=== PATIENT | female | born 1940 | race Caucasian/White ===

== ENCOUNTER 2016-11-09 06:10 | Inpatient (IN) | payer MEDICARE ==
[2016-11-03 11:13] LABS: ASCORBIC ACID (UR NOT ORDER) NEG (NEG); BILIRUBIN, URINE NEGATIVE (NEG); KETONE, URINE NEGATIVE (NEG); LEUKOCYTE ESTERASE(NOT OR TRACE (NEG); WBC (NOT ORDERED) (RFLEX) 5 (0-5)
[2016-11-03 12:04] LABS: BASOPHILS 0.3 %; BASOPHILS ABSOLUTE 0.02 10/3/uL (0.0-0.16); EOSINOPHILS 2.1 %; EOSINOPHILS ABSOLUTE 0.13 10/3/uL (0.0-0.53); HEMATOCRIT 40.3 % (36.0-48.0); HEMOGLOBIN 13.4 g/dL (12.0-16.0); IMMATURE GRANULOCYTES 0.2 %; IMMATURE GRANULOCYTES ABSOLUTE 0.01 10/3/uL (0.0-0.11); LYMPHOCYTES ABSOLUTE 1.14 10/3/uL (0.67-4.30); MEAN CORPUS HGB CONC 33.3 g/dL (32.0-36.0); MEAN CORPUSCULAR HEMOGLOB 31.1 pg (26.0-34.0); MEAN CORPUSCULAR VOLUME 93.5 fL (80-100); MEAN PLATELET VOLUME 10.4 fL (9.2-13.0); MONOCYTES 10.3 %; MONOCYTES ABSOLUTE 0.65 10/3/uL (0.21-1.20); NEUTROPHILS 69.1 %; NEUTROPHILS ABSOLUTE 4.39 10/3/uL (2.02-8.40); PLATELET COUNT 260 10/3/uL (150-400); RBC DISTRIBUTION WIDTH 13.6 % (12.0-16.0); RED CELL COUNT 4.31 10/6/uL (4.0-5.6); WHITE BLOOD CELLS 6.3 10/3/uL (4.5-10.5)
[2016-11-03 12:05] LABS: MANUAL DIFF NO %
[2016-11-03 12:14] LABS: INTERNATIONAL NORMAL RATI 1.1 UNITS (-); PROTIME (NOT ORD) 13.8 SEC (12.0-14.5)
[2016-11-03 12:18] LABS: ALBUMIN 3.7 G/DL (3.5-5.0); BUN (BLOOD UREA NITROGEN) 12 MG/DL (6-23); CALCIUM, SERUM 9.4 MG/DL (8.5-10.4); CHLORIDE, SERUM 104 MMOL/L (96-112); CO2 (CARBON DIOXIDE) 27 MMOL/L (24-34); CREATININE 0.69 MG/DL (0.55-1.02); GFR AFRICAN AMERICAN 98 ML/MIN (>=60); GFR NON AFRICAN AMERICAN 85 ML/MIN (>=60); GLOBULIN 3.7 G/DL (2.5-4.1); GLUCOSE, SERUM 96 MG/DL (60-99); POTASSIUM, SERUM 4.9 MMOL/L (3.5-5.3); SGOT(AST) 16 U/L (5-40); SGPT(ALT) 16 U/L (5-65); SODIUM, SERUM 140 MMOL/L (135-148); TOTAL BILIRUBIN 0.5 MG/DL (0-1.2); TOTAL PROTEIN 7.4 G/DL (6.0-8.5)
[2016-11-03 12:20] LABS: ALKALINE PHOSPHATASE 85 U/L (45-117)
--- NOTE | ~2016-11-09 | OP ---
Record Of Operation [facility] [address] [place]. [address] NAME: TUAN CORRAL : 39 STATUS : ADM IN PAT#: [id number] AGE: 75 ADM/REG DATE : 11/09/16 MR#: [id number] REPORT SERV DATE: 11/09/16 DICTATED BY: SHALONDA GARCIA DATE: 11/09/16 REPORT STATUS : Draft TRANSCRIBED BY: MODRomán DATE: 11/09/16 DATE OF PROCEDURE: 11/09/2016 PREOPERATIVE DIAGNOSES: 1. 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 2. Chronic rheumatic arthritis. 3. Chronic obstructive pulmonary disease. 4. Morbid obesity. 5. Remote history of smoking. POSTOPERATIVE DIAGNOSES: 1. 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 2. Chronic rheumatic arthritis. 3. Chronic obstructive pulmonary disease. 4. Morbid obesity. 5. Remote history of smoking. PROCEDURES PERFORMED: 1. Right video-assisted thoracic surgery with right lower lobectomy. 2. Mediastinal lymph node dissection. SURGEON: Shalonda Garcia M.D. LICENSING DIRECTOR: Jean Mcconnell. ANESTHESIA: General with Dr. Seth. INDICATIONS: This is a 75-year-old female with a remote history of smoking and quit smoking in 2004. In 2013, she was originally seen for nodule in the left upper lobe of her lung that had increased in size. This was resected as a wedge resection through a thoracoscopic approach and the pathology demonstrated to be a granulomatous inflammation. The patient has a history of rheumatoid arthritis. She had been followed by Dr. Ortiz for several years and a recent chest CT demonstrated a lung nodule in the right lower lobe and it also demonstrated increase in size over the last six months. PET scan demonstrated an increased uptake of the nodule. There was no evidence of regional metastatic spread on PET scan or CT scan. The patient underwent a bronchoscopy with biopsy and this was positive for poorly- differentiated carcinoma of the lung. We were asked to see the patient for evaluation. She subsequently underwent MRI of the brain, demonstrated no evidence of metastatic spread. PFTs demonstrated adequate reserve for resection with an FEV1 of 1.7 and DLCO of 50% of predicted. We talked with the patient and family about possible resection of the right lower lobe and after lengthy discussion of operations, its indication and risks, they wished to proceed. FINDINGS AT OPERATION: 1. Right lower lobe lung lesion was attached to the diaphragm. Grossly did not appear to invade the diaphragm, however, we did resect a small section of the diaphragm with the Record Of Operation [address] [address] NAME: TUAN CORRAL : 39 STATUS : ADM IN [facility]#: [id number] AGE: 75 ADM/REG DATE : 11/09/16 MR#: [id number] REPORT SERV DATE: 11/09/16 DICTATED BY: SHALONDA GARCIA DATE: 11/09/16 REPORT STATUS : Draft TRANSCRIBED BY: MODL DATE: 11/09/16 tumor and this was sent for pathology. Frozen section of this portion of the diaphragm was negative for malignancy. 2. After resection of this portion the diaphragm, the diaphragm was repaired using horizontal mattress sutures of 2-0 Prolene and these were secured using Cor-Knots x2. 3. Mediastinal lymph nodes from levels 2, 4, 7, 8, 9, 10, and 11 were removed. 4. The bronchial margin and diaphragm were negative for malignancy at operation. 5. TAP block was used for intercostal and field block. PATHOLOGIC SPECIMENS: Include the left lower lobe of the lung with the attached portion of the diaphragm and the mediastinal lymph nodes. DESCRIPTION OF PROCEDURE: The patient was brought to the operating suite where general anesthesia was induced and airway secured with a dual-lumen endotracheal tube. Lines were secured by Anesthesia and the patient was rolled in a left lateral decubitus position. The right chest was prepped with Hibiclens and ChloraPrep and draped with Ioban sterile sheets. The right lung was deflated by Anesthesia. A single 3 to 4 cm VATS incision was made five intercostal spaces above the costal margin and in the posterior axillary line. This was carried through the subcutaneous tissue and chest wall musculature. The intercostal musculature was divided. We entered the chest bluntly. A protractor soft tissue retractor was placed. Thoracoscopic examination demonstrated no significant effusion and no evidence of chest wall attachment with the exception of the right lower lobe to the diaphragm. A second 1 to 2 cm incision was made along the anterior axillary line, and then using a tonsil clamp, we entered the chest bluntly one intercostal space above the previous incision. Later in the operation, a third 1 to 2 cm incision along the anterior axillary line was performed and this incision was placed two intercostal spaces below the largest of the VATS incision. Three sites were used for instrumentation and placed in the staplers and chest tube accessed at the end of the operation. The right lower lobe was grasped. We started to separate right lower lobe from the diaphragmatic attachments. I was concerned that there was actual invasion of the diaphragm and so we excised a small portion of the diaphragm with the right lower lobe as it was . This was later repaired using two horizontal mattress sutures of 2-0 Prolene secured with Cor-Knot devices to close the defect in the diaphragm. We continued the same level of dissection along the inferior pulmonary ligament up the inferior pulmonary vein and level nine inferior pulmonary ligament lymph nodes were removed and sent for pathologic examination. We then laid the lung back in its normal anatomic position. The major fissure between the upper and lower lobes was incomplete and trying to dissect to separate the two lobes was challenging. Therefore, we decided nonanatomic approach for lung resection. The right lower lobe was then grasped again and it was retracted cranially. The inferior pulmonary vein was mobilized circumferentially. We then confirmed that there was a middle lobe branch draining into the superior pulmonary vein. Then, a vascular Ethicon stapler was placed across the inferior pulmonary vein. The stapler was fired and the inferior pulmonary vein was divided. We then continued the same level dissection up to the bronchus and level 11 and 10 lymph nodes were removed and sent for pathologic examination. We identified the Record Of Operation [address] [address] NAME: TUAN CORRAL : 39 STATUS : ADM IN [facility]#: [id number] AGE: 75 ADM/REG DATE : 11/09/16 MR#: [id number] REPORT SERV DATE: 11/09/16 DICTATED BY: SHALONDA GARCIA DATE: 11/09/16 REPORT STATUS : Draft TRANSCRIBED BY: MODL DATE: 11/09/16 bronchus to the middle lobe. We dissected around the bronchus intermedius just distal to the takeoff of the right middle lobe bronchus. Chest occlusion and ventilation demonstrated good aeration of the upper and middle lobes. Then, using a 60 mm black Ethicon staple load, the bronchus intermedius was occluded again and chest ventilation confirmed aeration of the right middle and upper lobe. The bronchial stapler was fired and the bronchus to the right lower lobe was divided. Having accomplished this, the lung was placed back into its normal anatomic position. A 60 mm black staple load was then placed across the minor fissure between the right lower lobe and right middle lobe. Then using the stapler, this was divided. Then, using several firings of the black Ethicon stapler, we marched across the major fissure to divide the right lower lobe from the right upper lobe. During this process before the stapler was fired each time, chest ventilation demonstrated good aeration of the right middle and upper lobe of the lung. Once this was completed, the left lower lobe was placed in a large Endobag and it was brought out through the largest of the VATS incision. Frozen section of the margin and of the bronchus and on the area of the diaphragm was negative for malignancy. The chest was irrigated with sterile water and saline. Lymph node dissection was then carried out. The lung was retracted anteriorly and the subcarinal region was dissected and the level 7 lymph node was removed and sent for pathologic examination. Then, the lung was retracted posteriorly and inferiorly. We then approached the upper part of the chest and the superior vena cava was identified. The azygous vein was identified and we made a small incision in the parietal pleura just cranial to the azygous vein. Care was taken to avoid injure the phrenic or vagus nerves. In this area, level 4 lymph nodes were removed and then just cranial to this, level 2 lymph nodes removed and sent for pathologic examination. Then, hemostasis was obtained. The chest was again irrigated with sterile water and saline. Once hemostasis was assured, the lymph node dissection beds were inspected and hemostasis was confirmed. Then, we had completed repairing the diaphragm as discussed above. The chest tube was placed through the most inferior thoracoscopic port site. Next, intercostal and field block using the TAP solution under thoracoscopic guidance was performed. Then, the lung was ventilated and filled the chest nicely. There was good aeration of the right middle and upper lobes. The largest of the VATS incision was then closed in layers with absorbable suture after removal of the soft tissue retractor. The last small VATS incision was closed likewise. The patient tolerated the procedure well. There were no complications. Sponge and needle counts correct. DISPOSITION: The patient was extubated and taken to recovery room in stable condition. MICHAEL/MASSIEL Shalonda Garcia M.D. Record Of [address] [address] NAME: TUAN CORRAL : 39 STATUS : ADM IN PAT#: [id number] AGE: 75 ADM/REG DATE : 11/09/16 MR#: [id number] REPORT SERV DATE: 11/09/16 DICTATED BY: SHALONDA GARCIA DATE: 11/09/16 REPORT STATUS : Draft TRANSCRIBED BY: MASSIEL DATE: 11/09/16 / [id number] CC: Eliu Helm MERCEDES V. Suresh Enjeti, M.D.
--- NOTE | ~2016-11-09 | DS ---
Discharge Summary [facility] [address] [place]. [address] NAME: TUAN CORRAL : 39 STATUS : DIS IN PAT#: [id number] AGE: 76 ADM/REG DATE : 11/09/16 MR#: [id number] REPORT SERV DATE: 11/22/16 DICTATED BY: SHALONDA GARCIA DATE: 11/21/16 REPORT STATUS : Draft TRANSCRIBED BY: MASSIEL DATE: 11/21/16 Data Collection from hospitalization DISCHARGE DIAGNOSES: 1. Right lower lobe lung cancer. 2. Chronic obstructive pulmonary disease. 3. History of tobacco use. 4. Obesity. 5. Chronic rheumatic arthritis. 6. Sleep apnea. CONSULTATIONS: None. PROCEDURES PERFORMED: Right video-assisted thoracic surgery with right lower lobectomy and mediastinal lymph node dissection on 11/09/2016. PATHOLOGY: 1. 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 Left node #9 dissection - negative for metastasis in one lymph node (0/1). Lymph node #10 dissection - negative for metastasis in one lymph node (0/1). Lymph node #11 dissection - negative for metastasis in one lymph node (0/1). Lymph node #7 dissection - negative for metastasis in four lymph nodes (0/4). Lymph node #8 dissection - negative for metastasis in one lymph node (0/1). Lymph node #2 dissection - negative for metastasis in five lymph nodes (0/5). Lymph node #4 dissection - negative for metastasis in nine lymph nodes (0/9). MEDICATIONS: [place] 10/325 half to one tablet every four hours as needed, Plaquenil 200 mg twice a day, Lopressor 25 mg twice a day, Dulera two puffs via inhaler twice a day, multivitamins one tablet daily, Ditropan XL 15 mg daily. CONDITION AT DISCHARGE: Stable. DISPOSITION: The patient was discharged home on a low-sodium, low-cholesterol, cardiac diet with activities as instructed. She would follow up with Fausto Morales on 12/29/2016. She would follow up with Dr. Marcelino Ortiz three to four weeks following discharge. She would follow up with Dr. Cielo Grider on 11/24/2016. HOSPITAL COURSE: This is a 76-year-old female who has a remote history of smoking. She stopped smoking in 2004. In 2013, she was originally seen for a nodule in the left upper lobe of her lung that had increased in size. This was resected as a wedge resection through a thoracoscopic approach and pathology demonstrated this to be granulomatous inflammation. The patient also has a history of rheumatoid arthritis. She had been followed by Dr. Ortiz for several years and a recent chest CT scan demonstrated a lung nodule in the right lower lobe. She was admitted to the hospital at this time for further evaluation and treatment. Upon admission, she was taken to the operating room where she underwent the above-mentioned procedure. She tolerated this well, and there were no complications. On postop day #1, she Discharge Summary [place] [id number] [place]. [address] NAME: TUAN CORRAL : 39 STATUS : DIS IN PAT#: [id number] AGE: 76 ADM/REG DATE : 11/09/16 MR#: [id number] REPORT SERV DATE: 11/22/16 DICTATED BY: SHALONDA GARCIA DATE: 11/21/16 REPORT STATUS : Draft TRANSCRIBED BY: MASSIEL DATE: 11/21/16 seemed to be in good spirits. She had good analgesia. She had no edema. Right pleural chest tube was in place. On postop day #2, she was up sitting in a chair. She had good results with oral analgesia. Chest x-ray showed decrease in size of small right apical pneumothorax. Over the next couple of days, pathology results were reviewed. White count was 13.5. Discharge planning was performed. On 11/14/2016, final pathology results were pending. Her incisions looked okay. She had no edema. Her chest tube was removed. Discharge instructions were given. Due to her improved and stable condition, she was discharged home with the above-stated instructions. Information collected by: Anna Jacinto I submit the above information as my discharge summary. BACILIO/MASSIEL Shalonda Garcia M.D. / [id number] CC: Eliu Helm MERCEDES V.
[~2016-11-09 06:10] MED LIST: DITROPAN XL15 MG PO; DULERA 200 MCG/13 GM INH; MULTIPLE VIT PO; PCET PO; PLAQ200B PO; SPIRIVA INH; T200 PO; TUMSROLL PO; VITAMIN D2000 UNIT PO
[2016-11-09 14:42] LABS: BASOPHILS 0.1 %; BASOPHILS ABSOLUTE 0.01 10/3/uL (0.0-0.16); EOSINOPHILS 0.1 %; EOSINOPHILS ABSOLUTE 0.01 10/3/uL (0.0-0.53); HEMATOCRIT 37.2 % (36.0-48.0); HEMOGLOBIN 12.7 g/dL (12.0-16.0); IMMATURE GRANULOCYTES 0.3 %; IMMATURE GRANULOCYTES ABSOLUTE 0.05 10/3/uL (0.0-0.11); LYMPHOCYTES ABSOLUTE 0.32 10/3/uL (0.67-4.30); MEAN CORPUS HGB CONC 34.1 g/dL (32.0-36.0); MEAN CORPUSCULAR HEMOGLOB 31.1 pg (26.0-34.0); MEAN PLATELET VOLUME 9.8 fL (9.2-13.0); MONOCYTES 2.1 %; MONOCYTES ABSOLUTE 0.35 10/3/uL (0.21-1.20); NEUTROPHILS 95.4 %; NEUTROPHILS ABSOLUTE 15.57 10/3/uL (2.02-8.40); PLATELET COUNT 210 10/3/uL (150-400); RBC DISTRIBUTION WIDTH 13.2 % (12.0-16.0); RED CELL COUNT 4.09 10/6/uL (4.0-5.6)
[2016-11-09 14:43] LABS: MANUAL DIFF NO %; WHITE BLOOD CELLS 16.3 10/3/uL (4.5-10.5)
[2016-11-09 14:53] LABS: BUN (BLOOD UREA NITROGEN) 10 MG/DL (6-23); CALCIUM, SERUM 8.8 MG/DL (8.5-10.4); CHLORIDE, SERUM 105 MMOL/L (96-112); CO2 (CARBON DIOXIDE) 25 MMOL/L (24-34); CREATININE 0.69 MG/DL (0.55-1.02); GFR AFRICAN AMERICAN 98 ML/MIN (>=60); GFR NON AFRICAN AMERICAN 85 ML/MIN (>=60); GLUCOSE, SERUM 154 MG/DL (60-99); POTASSIUM, SERUM 4.1 MMOL/L (3.5-5.3); SODIUM, SERUM 139 MMOL/L (135-148)
[2016-11-10 06:29] LABS: BUN (BLOOD UREA NITROGEN) 9 MG/DL (6-23); CALCIUM, SERUM 8.7 MG/DL (8.5-10.4); CHLORIDE, SERUM 106 MMOL/L (96-112); CO2 (CARBON DIOXIDE) 22 MMOL/L (24-34); CREATININE 0.63 MG/DL (0.55-1.02); GFR AFRICAN AMERICAN 101 ML/MIN (>=60); GFR NON AFRICAN AMERICAN 87 ML/MIN (>=60); GLUCOSE, SERUM 141 MG/DL (60-99); POTASSIUM, SERUM 4.5 MMOL/L (3.5-5.3); SODIUM, SERUM 139 MMOL/L (135-148)
[2016-11-10 06:47] LABS: BASOPHILS 0.1 %; BASOPHILS ABSOLUTE 0.01 10/3/uL (0.0-0.16); EOSINOPHILS 0 %; HEMATOCRIT 38.1 % (36.0-48.0); HEMOGLOBIN 12.6 g/dL (12.0-16.0); IMMATURE GRANULOCYTES 0.2 %; IMMATURE GRANULOCYTES ABSOLUTE 0.03 10/3/uL (0.0-0.11); LYMPHOCYTES ABSOLUTE 0.67 10/3/uL (0.67-4.30); MEAN CORPUS HGB CONC 33.1 g/dL (32.0-36.0); MEAN CORPUSCULAR HEMOGLOB 30.4 pg (26.0-34.0); MEAN CORPUSCULAR VOLUME 91.8 fL (80-100); MEAN PLATELET VOLUME 10.3 fL (9.2-13.0); MONOCYTES 5.1 %; MONOCYTES ABSOLUTE 0.69 10/3/uL (0.21-1.20); NEUTROPHILS 89.6 %; NEUTROPHILS ABSOLUTE 12.05 10/3/uL (2.02-8.40); PLATELET COUNT 208 10/3/uL (150-400); RBC DISTRIBUTION WIDTH 13.3 % (12.0-16.0); RED CELL COUNT 4.15 10/6/uL (4.0-5.6); WHITE BLOOD CELLS 13.5 10/3/uL (4.5-10.5)
[2016-11-10 06:53] LABS: MANUAL DIFF NO %
[2016-11-14] MEDS ORDERED: LOP25 PO (09:03)
[2016-11-14] MEDS ORDERED: NORCO1 TAB PO (09:04)
== END 2016-11-14 10:19 | disposition home or self-care (01) | DRG 164 ==
LOC: SDC/OF 06:10 → PACU 13:30 → 5NO 16:22
PROVIDERS: Thoracic Surgery (Cardiothoracic Vascular Surgery)
PROC: 07B74ZZ Excision of Thorax Lymphatic, Percutaneous Endoscopic Approach (ICD-10-PCS; 2016-11-09)
PROC: 3E0T3BZ Introduction of Anesthetic Agent into Peripheral Nerves and Plexi, Percutaneous Approach (ICD-10-PCS; 2016-11-09)
PROC: 0BTF4ZZ Resection of Right Lower Lung Lobe, Percutaneous Endoscopic Approach (ICD-10-PCS; principal; 2016-11-09 09:45)
DX: C34.31 Malignant neoplasm of lower lobe, right bronchus or lung (principal); Z68.41 Body mass index [BMI] 40.0-44.9, adult; J44.9 Chronic obstructive pulmonary disease, unspecified; J95.812 Postprocedural air leak; E66.01 Morbid (severe) obesity due to excess calories; M06.9 Rheumatoid arthritis, unspecified; Z87.891 Personal history of nicotine dependence
CPT/HCPCS: 36415; 71010; 71020; 80048; 80053; 81001; 82962; 83036; 85025; 85610; 86850; 86900; 86901; 86920; 87641; 88305; 88307; 88309; 88313; 88331; 88332; 88341; 88342; 88360; 93005; 94640; A9270-GY; C1751; C1769; J0690; J1170; J2250; J2370; J2405; J2710; J2795; J3010